=== PATIENT | female | born 1950 | race Caucasian/White ===

== ENCOUNTER → 2016-07-16 | Outpatient (CLI) | payer BC ==
[2016-07-18 13:19] LABS: LYME AB SCREEN Negative (Negative)
[2016-07-18 16:37] LABS: CYCLIC CITRULLINATED PEPTIDEAB <15.6 U (())
[2016-07-19 11:35] LABS: ANTINUCLEAR ANTIBODY 1.3 U (())
== END ==
LOC: MOB LAB 15:00
PROVIDERS: ATTEND Nurse Practitioner Family
DX: M25.562 Pain in left knee (principal); M25.561 Pain in right knee; M79.672 Pain in left foot; M79.671 Pain in right foot; M54.5 Low back pain; R21 Rash and other nonspecific skin eruption
CPT/HCPCS: 36415; 84550; 85652; 86038; 86200; 86431; 86618

== ENCOUNTER 2016-07-21 22:29 | Emergency (ER) | payer BC ==
[2016-07-21 22:47] VITALS: RESP 20; TEMP 97.8
[2016-07-21] MEDS ORDERED: KETOROLAC 30 MG/1 ML VIAL IVP ONE (23:06)
[2016-07-21] MEDS ORDERED: NORMAL SALINE 10 ML SYRINGE FLUSH IVP PRN (23:06)
[2016-07-21] MEDS ORDERED: Sodium Chloride 0.9% 1,000 ML PRIMARY IV ONE (23:06)
[2016-07-21 23:19] LABS: BASOPHILS # (AUTO) 0.02 10*3/UL; BASOPHILS % (AUTO) 0.2 % (0-1); EOSINOPHILS % (AUTO) 0.7 % (0-8); HEMATOCRIT 42.7 % (37.0-47.0); HEMOGLOBIN 14.3 g/dL (12.0-16.0); IMM GRAN % (AUTO) 0.2 % (0-5); IMM GRAN# (AUTO) 0.02 10*3/UL; LYMPHOCYTES # (AUTO) 1.45 10*3/uL; LYMPHOCYTES % (AUTO) 11.8 % (10-50); MEAN CORPUSCULAR HEMOGLOBIN 27.3 PG (27-31); MEAN CORPUSCULAR HGB CONC 33.5 g/dL (33-37); MEAN PLATELET VOLUME 10.6 FL (7.4-12.2); MONOCYTES # (AUTO) 0.92 10*3/UL (0.3-0.8); MONOCYTES % (AUTO) 7.5 % (5-15); NEUTROPHILS # (AUTO) 9.79 10*3/UL; NEUTROPHILS % (AUTO) 79.6 % (50-80); RDW COEFFICIENT OF VARIATION 14.9 % (11.5-14.5); RED BLOOD COUNT 5.24 10^6/uL (4.20-5.40); WHITE BLOOD COUNT 12.29 10^3/uL (4.8-10.8)
[2016-07-21 23:20] LABS: PLATELET MORPHOLOGY COMMENT NORMAL MORPHOLOGY (NORM)
[2016-07-21 23:25] LABS: ASPARTATE AMINO TRANSFERASE 27 IU/L (8-39); BILIRUBIN,TOTAL 0.5 mg/dL (0.3-1.2); BLOOD UREA NITROGEN 28 mg/dL (7-22); BUN/CREATININE RATIO 31.11 (6-20); CALCIUM 9.9 mg/dL (8.7-10.7); CHLORIDE 102 meq/L (98-112); CREATININE 0.9 mg/dL (0.50-1.20); EST GLOMERULAR FILTRATION > 60 (>60 ml/min/1.73m(2)); GLUCOSE 112 mg/dL (78-110); POTASSIUM 3.7 meq/L (3.8-5.2); SODIUM 140 meq/L (135-145); TOTAL PROTEIN 7.8 g/dL (6.1-8.0)
[2016-07-21] MEDS ORDERED: HYDROmorphone 2 MG/1 ML IVP ONE (23:36)
--- NOTE | 2016-07-22 01:21 | DI ---
HISTORY: Pain in left posterior thorax. Elevated D-dimer. COMPARISON STUDIES: None. TECHNIQUE: Standard CT pulmonary angiogram axial and coronal reformatted images from the level the a ortic arch through the dome of the diaphragm with maximal contrast opacification of the pulmonary art eries. 604 images FINDINGS: No evidence of acute pulmonary artery embolus identified. No thoracic aortic aneurysm or d issection present. No evidence of right heart strain. The heart and pericardium are unremarkable. Th yroid is unremarkable. A nonspecific prominent 14 mm prevascuar space mediastinal node is seen. No dawn spicious axillary or hilar lymphadenopathy identified. There is mild bilateral dependent atelectasis. The lungs are otherwise clear with no focal airspace mass, consolidation or pneumothorax. No pleural effusions present. Proximal airways are clear with no evident thickening or bronchiectasis. Multiple gallstones seen in the gallbladder lumen and neck. bilateral exophytic hypoattenuaing renal lesions are noted. The largest of these is approximately 6 cm in diameter and may have some internal septations or thin linear enhancements. This is incompletely evaluated. The remaining visualized abd ominal organs are unremarkable. The osseous structures are unremarkable without acute fracture. No suspicious lytic or sclerotic lesi on. Mild thoracic scoliotic deformity noted. IMPRESSION: 1. No evidence of acute pulmonary artery embolus. 2. Cholelithiasis. 3. Multiple large renal lesions, mostly cystic. However the 6 cm lesion on the left may have internal separations and/or thin linear post contrast enhancement. Recommend dedicated routine follow up vincent l ultrasound. 4. Nonspecific prominent 14 mm prevascuar space mediastinal node. This may be reactive. Recommend cli nical follow up.
[2016-07-22] MEDS ORDERED: ONDANSETRON 4 MG/2 ML VIAL ONE (01:30)
[2016-07-22] MEDS ORDERED: ONDANSETRON 4 MG/2 ML VIAL IVP ONE (01:35)
--- NOTE | 2016-07-22 01:44 | PDOC ---
Back Pain / Injury HPI - General Chief Complaint: Neck / Back Complaint Stated Complaint: MUSCLE SPASMS IN BACK Date Seen by Provider: 07/21/16 Time Seen by Provider: 22:45 Source: Patient, Spouse Exam Limitations: POSITIVE: No limitations Nurse's Notes Reviewed & Considered: Yes - History of Present Illness Initial Comments: The patient is a 66-year-old female. Patient states she got up this morning and rolled onto her side and experienced abrupt onset of pain over the left subscapular area. Her pain is exacerbated by deep inspiration. No history of discrete trauma. Patient states she does have a history of low back pain in the past. No cough or dyspnea. Patient took some Flexeril at 1600. She states she is allergic to morphine and hydrocodone. Body Location Affected: REPORTS: Back (Left subscapular and left upper thoracic area) Timing: REPORTS: Abrupt Duration: <24 hours Severity: Moderate Quality: REPORTS: "Pain", Sharpness Context: REPORTS: None Location at Time of Onset: REPORTS: Home Modifying Factors: improves with: Movement Associated Symptoms: REPORTS: Back pain (Left upper thoracic pain) Similar Symptoms Previously: No Recent Care Received: REPORTS: Denies Any Prior Injuries Related to Current Complaint?: No - Patient Home Medications Home Medications: Home Medications Aspirin [Aspir 81] 1 tab PO DAILY 06/04/12 Herreid-3 Fatty Acids/Fish Oil [Herreid 3 1,000 mg Softgel] 1 each PO DAILY Multivitamin [Multi-Vitamin Daily] 1 each PO DAILY 10/21/12 Cetirizine HCl [Zyrtec] 1 tab PO HS tab 01/27/14 Cyanocobalamin (Vitamin B-12) [Vitamin B12] 5,000 mcg PO DAILY tab 07/26/15 Vitamin B Complex 1 each PO DAILY tab 07/26/15 Pravastatin Sodium [Pravachol] 1 tab ORAL QPM #90 tab 07/30/15 Lactobacillus Acidophilus [Probiotic] 1 each PO QD cap 10/11/15 Magnesium 100 mg PO QD tab 10/11/15 Turmeric Root Extract [Turmeric] 500 mg PO TID cap 10/11/15 Pramipexole Di-HCl [Pramipexole Dihydrochloride] 1 tab PO QHS #90 tab 10/22/15 Orphenadrine Citrate 100 mg PO BID tab 07/01/16 Albuterol Sulfate [Proair Hfa] 1 puff INH PRN puff 11/21/15 Montelukast Sodium 1 tab PO DAILY tab 11/21/15 Potassium Chloride 1 cap PO BID #180 cap 11/22/15 Blood-Glucose Control, Normal [Onetouch Ultra Control Soln] 1 each IN BID #100 each 12/07/15 Furosemide 1 tab PO DAILY #90 tab 01/08/16 Losartan Potassium 1 tab PO DAILY #90 tab 01/08/16 Alpha Lipoic Acid 2 cap PO QD cap 05/01/16 Pregabalin [Lyrica] 1 cap PO ASDIR #540 cap 05/01/16 Triamcinolone Acetonide 1 applic TOPICAL BID PRN #120 gm 05/01/16 Cyclobenzaprine HCl 1 tab PO TID PRN #30 tab 06/10/16 Methylprednisolone [Medrol] 4 mg PO as directed #1 packet 06/10/16 Lancets [Onetouch Delica] 1 each MC 3-4XD #200 each 06/19/16 Tramadol HCl 50 mg PO Q6H PRN #20 tab 07/22/16 - Patient Allergies Allergies/Adverse Reactions: Allergies Allergy/AdvReac Type Severity Reaction Status Date / Time Sulfa (Sulfonamide Allergy Severe Anaphylaxis Verified 07/21/16 23:00 Antibiotics) morphine Allergy Intermediate Very Verified 07/21/16 23:00 difficult to wake, almost comatose. lactose AdvReac Severe DIARRHEA Verified 07/21/16 23:00 hydrocodone AdvReac CAUSED Verified 07/21/16 23:00 HALLUCINATIONS AND NIGHTMARES MRI CONTRAST - GADALINIUM AdvReac RENAL Uncoded 07/21/16 22:37 FAILURE Past Medical History - heen HEENT History: Other (please comment) Additional HEENT History: WEARS GLASSES Cardiovascular History: Hypertension, Arrhythmia, Valvular Heart Disease, Hyperlipidemia Additional Cardiovasular History: HAD STRESS TEST AND HEART CATH IN NOVEMBER 2013 FOR TOTAL JOINT CLEARANCE WITH NEGATIVE CARDIAC WORKUP Respiratory History: Asthma, Sleep Apnea, Home CPAP Use Gastrointestinal History: Denies History Genitourinary History: Renal Failure Additional Genitourinary History: R/T IV CONTRAST 11/06/15 Endocrine History: Type 2 Diabetes (oral) Additional Endocrine History: DOESNT CHECK ON REGULAR BASIS Musculoskeletal History: Arthritis, Joint Pain, Osteoarthritis Prosthesis or Implant: Yes (LEFT ARM/RIGHT TKA) Additional Musculoskeletal History: RESTLESS LEG SYNDROME Neurological History: Motion Sickness, Other (please comment) Additional Neurological History: DIABETIC NEUROPATHY Blood Disorders: Denies History Psychiatric History: Depression, Anxiety Disorders Additional Psychiatric History: STATES HX OF ABOVE BUT DENIES ANY PROBLEMS NOW History of Sexually Transmitted Diseases: No Female Reproductive History: Denies History Obstetrical History: Denies History Cancer History: Denies History In Past Year Been Physically Harmed or Verbally Threatened: No History of MDRO: No History of Other Communicable Diseases: No Tobacco Use: Never Smoker Alcohol Use: Rarely Substance Use Type: None Previous Surgical History: Yes Type / Date of Surgery: LEFT SHOULDER SCOPE/RIGHT CTR/LEFT CTR/ RIGHT TKA 01/17/14 - RIGHT KNEE SCOPE/ EGD/ COLONOSCOPY/ P HYST/ RIGHT SHOULDER SCOPE RCR/ BREAST REDUCTION/ ORIF LEFT ARM/ TONSILLECTOMY/ LEFT FOOT SX/ Anesthesia Reactions: Yes (PONV) Malignant Hyperthermia: No Significant Family History: No pertinent family hx Past Medical History Reviewed: Reviewed - No Changes ROS - Limitations ROS Limitations: No Limitations Constitution: REPORTS: Denies Symptoms Cardiovascular: REPORTS: Denies Cardiac Symptoms Respiratory: REPORTS: Other (Pleuritic pain left subscapular area) Neurological: REPORTS: Denies Neuro Symptoms Gastrointestinal: REPORTS: Denies GI Symptoms Endocrine: REPORTS: Denies Symptoms Musculoskeletal: REPORTS: Other (Left upper thoracic pain) Genitourinary: REPORTS: Denies Symptoms Eyes: REPORTS: Denies Symptoms ENT: REPORTS: Denies Symptoms Skin: REPORTS: Denies Skin Symptoms Immunologic: POSITIVE: Denies Symptoms Psychiatric: POSITIVE: Denies Psych Symptoms Back Physical Assessment - General Appearance General Appearance: REPORTS: Alert, Cooperative, No Evidence of Trauma, Anxious , Moderate Distress - HEENT HEENT: POSITIVE: Head Inspection Nml, Eyes Inspection Nml, Ears Inspection Nml, Nose Inspection Nml, Oral/Dental Inspect. Nml, Pharynx Inspect. Nml, PERRL, EOMI - Pupil Size Pupil Size: 3 mm: Bilateral (PERRLA) - Neck Neck: POSITIVE: Non Tender, Painless ROM, Trachea Midline, Nexus Criteria Negative - Respiratory / CVS Respiratory / CVS: POSITIVE: No Ecchymosis, Breath Sounds Normal, No Respiratory Distress, Heart Sounds Normal, Regular Rate/Rhythm, Tenderness ( Some tenderness on firm palpation left subscapular and left upper parathoracic area), See Diagram. NEGATIVE: Rib Tenderness, Rib Palpable FX, Crepitus, SubQ Emphysema, Splinting, Paradoxical Movements, Decreased Breath Sounds, Ecchymosis , Swelling, Abrasion(s), Wheezes, Rales, Rhonchi, Tachycardia, Bradycardia, Irregularly Irreg Rate - Abdomen Abdomen: Soft: (All Quadrants), Normal Bowel Sounds: (All Quadrants), Denies Tenderness: (All Quadrants), No Splenomegaly: (All Quadrants), No Hepatomegaly: (All Quadrants), No Guarding: (All Quadrants), No Rebound: (All Quadrants), No Palpable Pulse: (All Quadrants), No Palpabale Mass: (All Quadrants), No Distention: (All Quadrants), No Rigidity: (All Quadrants) - Back Back: REPORTS: No Vertebral Tenderness, See Diagram. DENIES: Non Tender ( Tender left upper parathoracic and left subscapular area; see diagram), Vertebral Pt. 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 Because of elevated d-dimer CTA chest was obtained which showed no pulmonary emboli. Incidentally noted were multiple gallstones and some bilateral exophytic hypoattenuating renal lesions. Lab Results Reviewed: Yes (d-dimer elevated and white blood cell count 12,000; otherwise normal) Lab Results:: Laboratory Results 07/21/16 Range/Units 23:08 WBC 12.29 H (4.8-10.8) 10^3/uL RBC 5.24 (4.20-5.40) 10^6/uL Hgb 14.3 (12.0-16.0) g/dL Hct 42.7 (37.0-47.0) % MCV 81.5 (81-99) FL MCH 27.3 (27-31) PG MCHC 33.5 (33-37) g/dL RDW Std Deviation 44.5 (39-50) fL RDW Coeff of Clementina 14.9 H (11.5-14.5) % Plt Count 216 (140-350) 10*3/uL MPV 10.6 (7.4-12.2) FL Immature Gran % (Auto) 0.2 (0-5) % Neut % (Auto) 79.6 (50-80) % Lymph % (Auto) 11.8 (10-50) % [place] % (Auto) 7.5 (5-15) % Eos % (Auto) 0.7 (0-8) % Baso % (Auto) 0.2 (0-1) % Immature Gran # (Auto) 0.02 10*3/UL Neut # (Auto) 9.79 10*3/UL Lymph # (Auto) 1.45 10*3/uL [place] # (Auto) 0.92 H (0.3-0.8) 10*3/UL Eos # (Auto) 0.09 10*3/UL Baso # (Auto) 0.02 10*3/UL WBC Morphology Comment Normal morphology (NORM) Plt Morphology Comment Normal morphology (NORM) RBC Morph Comment Normal morphology (NORM) D-Dimer 0.74 H (0.00-0.59) mg/L Sodium 140 (135-145) meq/L Potassium 3.7 L (3.8-5.2) meq/L Chloride 102 (98-112) meq/L Carbon Dioxide 24 (23-33) meq/L Anion Gap 14 (5-20) BUN 28 H (7-22) mg/dL Creatinine 0.9 (0.50-1.20) mg/dL Estimated GFR > 60 (>60 ml/min/1.73m(2)) BUN/Creatinine Ratio 31.11 H (6-20) Glucose 112 H (78-110) mg/dL Calculated Osmolality 296.0 H (267-292) mOsm/kg Calcium 9.9 (8.7-10.7) mg/dL Total Bilirubin 0.5 (0.3-1.2) mg/dL AST 27 (8-39) IU/L ALT 36 (9-52) IU/L Alkaline Phosphatase 104 (38-126) IU/L Total Protein 7.8 (6.1-8.0) g/dL Albumin 4.4 (3.5-4.8) g/dL Globulin 3.4 (2.50-4.10) g/dL Albumin/Globulin Ratio 1.20 L (1.3-2.0) mg/g - Patient's Progress Pain Medication Addressed: POSITIVE: Yes (Ketorolac and Dilaudid, with good pain relief) School/Work Release Addressed: POSITIVE: Not Applicable Re-Examine Time: 01:10 Re-Examine Comment: Patient feels much better after hydration with normal saline patient was medicated with ketorolac, 30 mg IV, and when little analgesia was achieved with this patient was given 2 mg of Dilaudid IV, with good relief of pain. Status: POSITIVE: Improved, Re-Examined - Consult Counseled: POSITIVE: Patient, Family, RE: Lab Results, RE: Radiology Results, RE : DX, RE: Need for F/U Patient Care Time - Estimated PCT Patient Care Time (In Minutes): 50 Vital Signs - Recent Vital Signs Vital Signs: Vital Signs (Last 8 hours) Temp Pulse Resp BP Pulse Ox 07/21/16 22:30 97.8 F 97 20 133/75 96 - VS Reviewed Vital Signs Reviewed: Yes Discharge Clinical Impression: Thoracic back pain Discharge Disposition: Discharged to Home Condition: Good Prescriptions / Orders: Tramadol HCl 50 mg PO Q6H PRN #20 tab PRN Reason: Pain Patient Instructions Given at Discharge: Thoracic Back Strain (ED) Additional Instructions: Your blood tests were normal as was her chest x-ray. CTA of chest did not show any blood clots or any other chest abnormalities. Incidentally noted on your CTA or gallstones and some bilateral lesions of the kidneys, which are probably benign cysts. However, to be on the safe side, please contact your primary care provider and arrange for a dedicated renal and gallbladder ultrasound. Warm moist compresses to your upper back. Tramadol one every 4 hours as necessary for pain. Return here anytime if condition worsens. Follow Up With: AMY SUAREZ [Primary Care Provider] - (Instructions as above. Return here as necessary. Follow-up with your primary care provider as indicated.)
[2016-07-22] MEDS ORDERED: traMADol 50 MG TABLET PO SCH (01:45)
[2016-07-22] MEDS ORDERED: Ondansetron ODT Tab 4 MG TAB PO SCH (02:45)
--- NOTE | 2016-07-22 07:53 | DI ---
PA /LATERAL CHEST X-RAY, 07/21/2016 11:06 PM : Clinical History: Left subscapular pain. Previous Exam: 11/14/2015. There is no acute soft tissue or bony abnormality. Heart size is normal. Lungs are clear. Mediastinal structures are normal. There are no pulmonary nodules. Reading: Normal chest x-ray. There has been no interval change.
== END 2016-07-22 03:05 ==
LOC: ER 22:29
DX: M54.89 Other dorsalgia (principal); M62.830 Muscle spasm of back; E11.40 Type 2 diabetes mellitus with diabetic neuropathy, unspecified
CPT/HCPCS: 71020; 71275; 80053; 85025; 85379; 96374; 96375; 99283 ×2; J1885; J1170; J2405; J7030

== ENCOUNTER → 2016-07-30 | Outpatient (CLI) | payer BC ==
[2016-07-30 07:28] LABS: HEMOGLOBIN A1C 5.72 % (4.2-6.0)
[2016-07-30 07:30] LABS: BLOOD UREA NITROGEN 20 mg/dL (7-22); BUN/CREATININE RATIO 22.22 (6-20); CALCIUM 9.4 mg/dL (8.7-10.7); CHOL/HDL RATIO 2.93 RATIO (0-4.0); EST GLOMERULAR FILTRATION > 60 (>60 ml/min/1.73m(2)); GAMMA GLUTAMYL TRANSPEPTIDASE 18 IU/L (8-78); HDL CHOLESTEROL 43 mg/dL (40-150); SERUM CHOLESTEROL 126 mg/dL (120-200)
== END ==
LOC: LAB 07:08
PROVIDERS: ATTEND Nurse Practitioner Family
DX: E11.9 Type 2 diabetes mellitus without complications (principal); E78.5 Hyperlipidemia, unspecified; I10 Essential (primary) hypertension
CPT/HCPCS: 36415; 80048; 82247; 82465; 82550; 82977; 83036; 83718; 84075; 84450; 84460; 84478

== ENCOUNTER → 2016-07-31 | Outpatient (CLI) | payer BC, OTHER ==
--- NOTE | 2016-07-31 13:50 | DI ---
BILATERAL RENAL ULTRASOUND, 07/31/2016 12:49 PM: Clinical History: Bilateral kidney lesions, [place]. Bilateral cysts were noted on the previous exam. Previous Exam: 11/09/2015. Scans are performed through both kidneys in multiple projections. The right kidney measures 114 mm, a nd the left kidney measures 129 mm. There is a roughly 4 cm cortical cyst between the mid zone and in the lower pole of the right kidney. In the upper pole medially, there are 2 tandem small cyst measur ing approximately 1.5 and 2.3 cm, respectively. There is an upper pole cyst in the left kidney that m easures approximately 4.0 x 4.5 x 7.8 cm. Additional small cortical cysts are noted in the lower pole and the range of 2.5 cm. No solid lesion is seen in either kidney. There is no hydronephrosis or hyd roureter. Perfusion to both kidneys is symmetric and normal. The bladder is normal. Bilateral uretera l jets are visualized. There is an estimated prevoid bladder volume of 350-355 mL. There is no post v oid residual volume. Readin. There are bilateral simple cysts, measuring up to 4.0 cm on the right side and greater than 4 cm in diameter on the left side. No solid lesion is identified. The kidneys are otherwise normal and the re has been no significant interval change. 2. The bladder is normal and bilateral ureteral jets are visualized. The bladder volume is in the ra nge of 350-355 mL and there is no post void residual volume. 2.3 cm 2.3 cm 2.3 cm
--- NOTE | 2016-07-31 16:47 | DI ---
RIGHT KNEE, 07/31/2016 4:24 PM: Clinical History: Right knee pain. Previous Exam: 09/14/2014. 3 views are submitted. The AP projection is a weightbearing view. The patient is status post total ri ght knee replacement. The prosthetic device articulates normally. There is no evidence of loosening o f the prosthesis. There is a small joint effusion. Readin. Status post total right knee replacement without evidence of loosening of the prosthesis. The pro sthetic device articulates normally. 2. There is a small joint effusion.
== END ==
LOC: US 12:43
PROVIDERS: ATTEND Nurse Practitioner Family
DX: N28.9 Disorder of kidney and ureter, unspecified (principal); M25.561 Pain in right knee; M25.461 Effusion, right knee; Z96.651 Presence of right artificial knee joint
CPT/HCPCS: 73562; 76770

== ENCOUNTER → 2016-10-07 | Outpatient (CLI) | payer BC ==
--- NOTE | 2016-10-07 23:00 | DI ---
RIGHT SHOULDER, 10/07/2016 11:31 AM: Clinical History: Right shoulder pain. Previous Exam: None at this facility. 3 views are submitted. There is no acute soft tissue, osseous, or joint abnormality. There are metall ic anchors in the humeral head probably secondary to a rotator cuff tear. The visualized portions of the right lung and apex are normal. Reading: Status post previous right shoulder surgery. The exam is otherwise normal.
--- NOTE | 2016-10-07 23:03 | DI ---
RIGHT LONG FINGER EXAM, 10/07/2016 11:33 AM: Clinical History: Pain in the right long finger. Previous Exam: None at this facility. 3 views are submitted. There is no acute soft tissue, osseous, or joint abnormality. Reading: Normal right long finger exam.
--- NOTE | 2016-10-08 15:00 | DI ---
CERVICAL SPINE SERIES, 10/07/2016 12:55 PM: Clinical History: Cervical pain. Previous Exam: None at this facility. Upright AP and lateral and upright lateral flexion and extension views are submitted. The vertebral b odies are normal in height and size. There is severe disc space narrowing at C4-5 and C5-6 with moder ate narrowing at C6-7 and C7-T1. The C2-3 and C3-4 disc spaces are normal in height. Posterior alignm ent is normal but on the extension view, there is no cervical lordosis in the patient is extending on ly the occiput and C1 posteriorly. Posterior alignment and lateral masses are normal. Degenerative ar thritic changes are present bilaterally in the uncovertebral joints at C3-4 through C5-6. C1 articula herber normally with C2 and the occiput. Prevertebral soft tissue planes are normal. Readin. Chronic disc space narrowing at C4-5 through C7-T1 with degenerative arthritic changes of the unc overtebral joints bilaterally between C3-4 through C5-6. 2. There is no instability with flexion and extension maneuvers although on the extension view, ther e is no cervical lordosis in the patient is bending mainly at C1 and the occiput.
== END ==
LOC: ORTHO 12:14
PROVIDERS: ATTEND Physician Assistant
DX: M25.511 Pain in right shoulder (principal); M79.644 Pain in right finger(s); M54.2 Cervicalgia; M47.22 Other spondylosis with radiculopathy, cervical region; M48.02 Spinal stenosis, cervical region; Z98.890 Other specified postprocedural states
CPT/HCPCS: 72050; 73030; 73140

== ENCOUNTER → 2016-10-14 | Outpatient (CLI) | payer BC ==
--- NOTE | 2016-10-14 16:32 | DI ---
HISTORY: Neck pain and right arm radiculopathy. PREVIOUS EXAM: None at this facility. TECHNIQUE: Multiplanar MR images are obtained through the cervical spine without contrast. FINDINGS: There is reversal of the normal lordotic curvature of the cervical spine from C3-C5. The spinal cord descends normally with normal course, caliber and signal characteristics. The posteri or fossa is unremarkable. The prevertebral soft tissues are unremarkable. There is some flow artifact within the CSF which limi ts evaluation of the signal within the spinal cord. Signal within the clivus is normal. There is no evidence of Chiari malformation. Individual intervertebral disc spaces: C2/C3: No significant stenosis. C3/4: There is a mild facet hypertrophy and mild degenerative endplate changes causing mild left neur oforaminal narrowing. C4/5: There is disc desiccation and a broad-based disc bulge with uncovertebral joint osteophyte form ation and facet hypertrophy contributing to mild to moderate left neural foraminal narrowing and no s ignificant right neural foraminal narrowing. C5/6: There is loss of intervertebral disc height with a small broad-based disc bulge and uncovertebr al joint osteophytes contributing to mild central canal stenosis with moderate right and mild left ne ural foraminal narrowing. C6/7: There is disc desiccation and a broad-based disc bulge with some uncovertebral joint osteophyte formation and some facet hypertrophy without significant stenosis. C7/T1: No significant stenosis. IMPRESSION: 1. C3/4: There is a mild facet hypertrophy and mild degenerative endplate changes causing mild left neuroforaminal narrowing. 2. C4/5: There is disc desiccation and a broad-based disc bulge with uncovertebral joint osteophyte formation and facet hypertrophy contributing to mild to moderate left neural foraminal narrowing and no significant right neural foraminal narrowing. 3. C5/6: There is loss of intervertebral disc height with a small broad-based disc bulge and uncover tebral joint osteophytes contributing to mild central canal stenosis with moderate right and mild lef t neural foraminal narrowing. 4. C6/7: There is disc desiccation and a broad-based disc bulge with some uncovertebral joint osteop hyte formation and some facet hypertrophy without significant stenosis. 5. C7/T1: No significant stenosis.
== END ==
LOC: MRI 13:48
PROVIDERS: ATTEND Physician Assistant
DX: M47.22 Other spondylosis with radiculopathy, cervical region (principal); M50.121 Cervical disc disorder at C4-C5 level with radiculopathy
CPT/HCPCS: 72141

== ENCOUNTER → 2016-10-15 | Outpatient (CLI) | payer BC ==
--- NOTE | 2016-10-15 10:42 | DI ---
HISTORY: Injury to right shoulder. Decreased range of motion. History of surgery. TECHNIQUE: MR images of the right shoulder were obtained and submitted for interpretation. FINDINGS: Patient has a history of rotator cuff repair. Repaired supraspinatus and infraspinatus ten dons appear grossly intact without retraction or muscle atrophy although low grade partial tears hard to exclude. There is medial subluxation of the biceps tendon out of the bicipital groove without evidence for ful l thickness tearing. There is irregularity of anterior and posterior superior glenoid labrum possibly representing tearing . There is minimal joint effusion and bursitis. IMPRESSION: 1. Post-surgical changes, as above. 2. Medial subluxation of the biceps tendon out of the bicipital groove. 3. Possible tearing of the glenoid labrum. 4. Minimal joint effusion and bursitis.
== END ==
LOC: MRI 07:49
PROVIDERS: ATTEND Physician Assistant
DX: M25.511 Pain in right shoulder (principal); M75.51 Bursitis of right shoulder; M25.411 Effusion, right shoulder
CPT/HCPCS: 73221

== ENCOUNTER → 2016-11-03 | Outpatient (CLI) | payer BC ==
[2016-11-03 07:57] LABS: HEMOGLOBIN A1C 5.69 % (4.2-6.0)
[2016-11-03 08:18] LABS: CREATININE, URINE 177.9 MG/DL (15-500)
[2016-11-03 08:22] LABS: BLOOD UREA NITROGEN 18 mg/dL (7-22); CALCIUM 9.2 mg/dL (8.7-10.7); CHOL/HDL RATIO 2.79 RATIO (0-4.0); EST GLOMERULAR FILTRATION > 60 (>60 ml/min/1.73m(2)); GAMMA GLUTAMYL TRANSPEPTIDASE 15 IU/L (8-78); HDL CHOLESTEROL 53 mg/dL (40-150); SERUM CHOLESTEROL 148 mg/dL (120-200)
== END ==
LOC: LAB 07:22
PROVIDERS: ATTEND Nurse Practitioner Family
DX: E11.9 Type 2 diabetes mellitus without complications (principal); E78.5 Hyperlipidemia, unspecified; I10 Essential (primary) hypertension
CPT/HCPCS: 36415; 80048; 82043; 82247; 82465; 82550; 82977; 83036; 83718; 84075; 84450; 84460; 84478

== ENCOUNTER → 2016-11-03 | Outpatient (CLI) | payer BC ==
--- NOTE | 2016-11-03 16:33 | EKG ---
[address] [address] Measurements Intervals [place] Rate: 62 P: 30 SD: 171 QRS: 81 QRSD: 90 T: -13 QT: 412 QTc: 418 Interpretive Statements SINUS RHYTHM NONSPECIFIC T-WAVE ABNORMALITY Compared to ECG 11/09/2015 09:51:22 No significant changes Electronically Signed On 11-03-16 19:59:00 MDT by Issac Holcomb [email or web address]
[2016-11-03 17:12] LABS: BASOPHILS # (AUTO) 0.01 10*3/UL; BASOPHILS % (AUTO) 0.1 % (0-1); EOSINOPHILS # (AUTO) 0.21 10*3/UL; HEMATOCRIT 41.6 % (37.0-47.0); HEMOGLOBIN 13.5 g/dL (12.0-16.0); LYMPHOCYTES # (AUTO) 3.16 10*3/uL; MEAN CORPUSCULAR HEMOGLOBIN 26.8 PG (27-31); MEAN CORPUSCULAR HGB CONC 32.5 g/dL (33-37); MEAN CORPUSCULAR VOLUME 82.5 FL (81-99); MEAN PLATELET VOLUME 10.6 FL (7.4-12.2); MONOCYTES # (AUTO) 0.53 10*3/UL (0.3-0.8); MONOCYTES % (AUTO) 7.5 % (5-15); NEUTROPHILS # (AUTO) 3.19 10*3/UL; NEUTROPHILS % (AUTO) 44.9 % (50-80); RED BLOOD COUNT 5.04 10^6/uL (4.20-5.40)
[2016-11-03 17:14] LABS: PLATELET MORPHOLOGY COMMENT NORMAL MORPHOLOGY (NORM); RBC MORPHOLOGY COMMENT NORMAL MORPHOLOGY (NORM); WBC MORPHOLOGY COMMENT NORMAL MORPHOLOGY (NORM)
--- NOTE | 2016-11-03 18:33 | DI ---
PA /LATERAL CHEST X-RAY, 11/03/2016 3:59 PM : Clinical History: Preprocedure evaluation Previous Exam: July 21, 2016 There is no acute soft tissue or bony abnormality. Heart size is normal. Lungs are clear. Mediastinal structures are normal. There are no pulmonary nodules. There is mild increased AP dimension and flattening of the hemidiaphragms consistent with COPD. Stable postsurgical changes are seen with suture anchors in the right humeral head. IMPRESSION: Normal chest x-ray.
== END ==
LOC: MOB EKG 16:13
PROVIDERS: ATTEND Nurse Practitioner Family
DX: Z01.812 Encounter for preprocedural laboratory examination (principal); Z01.810 Encounter for preprocedural cardiovascular examination; Z01.818 Encounter for other preprocedural examination; M75.111 Incomplete rotator cuff tear or rupture of right shoulder, not specified as traumatic; M24.111 Other articular cartilage disorders, right shoulder; J44.9 Chronic obstructive pulmonary disease, unspecified
CPT/HCPCS: 36415; 71020; 83880; 85025; 93005; 93010

== ENCOUNTER 2016-11-11 15:31 | Emergency (ER) | payer BC, OTHER ==
[2016-11-11] MEDS ORDERED: NORMAL SALINE 10 ML SYRINGE FLUSH IVP PRN (16:09)
[2016-11-11] MEDS ORDERED: NITROGLYCERIN 0.4 MG SL TAB (BOTTLE OF 3) SL PRN (16:09)
[2016-11-11] MEDS ORDERED: Sodium Chloride 0.9% 1,000 ML PRIMARY IV ONE (16:09)
[2016-11-11] MEDS ORDERED: ASPIRIN 81 MG (BABY) CHEWABLE TABLET PO ONE (16:09)
[2016-11-11] MEDS ORDERED: Pantoprazole Inj 40 MG in Normal Saline Flush 10 ML IVP ONE (16:09)
--- NOTE | 2016-11-11 16:12 | EKG ---
[address] [address] Measurements Intervals [place] Rate: 64 P: 34 HI: 163 QRS: 74 QRSD: 95 T: 6 QT: 404 QTc: 414 Interpretive Statements SINUS RHYTHM INTERPRETATION BASED ON A DEFAULT AGE OF 40 YEARS Compared to ECG 11/03/2016 16:31:44 T-wave abnormality no longer as marked Electronically Signed On 11-12-16 08:33:44 MDT by Manuel Gomez MD [email or web address]
[2016-11-11 16:13] VITALS: RESP 20; TEMP 96.9
[2016-11-11 16:18] LABS: BASOPHILS # (AUTO) 0.02 10*3/UL; BASOPHILS % (AUTO) 0.3 % (0-1); EOSINOPHILS # (AUTO) 0.24 10*3/UL; EOSINOPHILS % (AUTO) 3.2 % (0-8); HEMATOCRIT 46.4 % (37.0-47.0); HEMOGLOBIN 15.1 g/dL (12.0-16.0); LYMPHOCYTES # (AUTO) 2.19 10*3/uL; MEAN CORPUSCULAR HEMOGLOBIN 26.7 PG (27-31); MEAN CORPUSCULAR HGB CONC 32.5 g/dL (33-37); MEAN PLATELET VOLUME 10.7 FL (7.4-12.2); MONOCYTES # (AUTO) 0.69 10*3/UL (0.3-0.8); MONOCYTES % (AUTO) 9.2 % (5-15); NEUTROPHILS # (AUTO) 4.35 10*3/UL; RED BLOOD COUNT 5.66 10^6/uL (4.20-5.40)
[2016-11-11 16:24] LABS: LIPASE 71 IU/L (23-300); PLATELET MORPHOLOGY COMMENT NORMAL MORPHOLOGY (NORM); RBC MORPHOLOGY COMMENT NORMAL MORPHOLOGY (NORM); WBC MORPHOLOGY COMMENT NORMAL MORPHOLOGY (NORM)
[2016-11-11 16:26] LABS: BLOOD UREA NITROGEN 22 mg/dL (7-22); BUN/CREATININE RATIO 24.44 (6-20); CALCIUM 9.5 mg/dL (8.7-10.7); EST GLOMERULAR FILTRATION > 60 (>60 ml/min/1.73m(2)); SERUM ALBUMIN 4.7 g/dL (3.5-4.8)
[2016-11-11 16:38] LABS: CREATINE KINASE MB 1.76 NG/ML (0.00-5.00); TROPONIN I < 0.012 ng/mL (< 0.040)
[2016-11-11] MEDS ORDERED: oxyCODONE-ACETAMINOPHEN 5-325 TAB PO ONE (17:13)
--- NOTE | 2016-11-11 17:30 | DI ---
AP CHEST X-RAY, 11/11/2016 4:10 PM : Clinical History: Chest pain Previous Exam: November 03, 2016 There is no acute soft tissue or bony abnormality. Heart size is normal. Lungs are clear. Mediastinal structures are normal. There are no pulmonary nodules. The overlying EKG leads are seen. Postsurgical changes are seen in the right proximal humerus. Reading: No acute disease.
--- NOTE | 2016-11-11 18:23 | DI ---
VENOUS DOPPLER ULTRASOUND OF THE LEFT LOWER EXTREMITY, 11/11/2016 5:15 PM: Clinical History: Elevated d-dimer Previous Exam: None. Technique: 2D real-time imaging is supplemented with color Doppler ultrasound. Compression and augmen tation maneuvers were performed. The long saphenous vein is normal. Reading: No evidence of deep venous thrombosis.
--- NOTE | 2016-11-11 18:59 | DI ---
CT CTA CHEST NONCORONARY W/WO,11/11/2016 5:14 PM: Clinical History: Chest pain and elevated d-dimer Previous Exam: July 22, 2016 Findings: Multiple helically acquired CT images are obtained through the chest following a CT chest angiogram p rotocol. The pulmonary arteries are normal without filling defect or truncation. There is subsegmental atelect asis in the lung bases. Liver is unremarkable. There is a large cystic mass within the left kidney which is not well evaluated on this exam. This is stable compared to the prior exam. There are multiple stones seen within the gallbladder. The aorta is unremarkable. Impression: No evidence of pulmonary embolism. Stable renal cysts. Stable cholelithiasis.
--- NOTE | 2016-11-11 21:07 | PDOC ---
Chest Pain HPI - General Chief Complaint: Chest Pain Stated Complaint: CP Date Seen by Provider: 11/11/16 Time Seen by Provider: 15:45 Source: Patient Exam Limitations: POSITIVE: No limitations Treatment Prior to Arrival: REPORTS: None Nurse's Notes Reviewed & Considered: Yes - History of Present Illness Initial Comments: The patient is a 66 year old female. Patient states that 4 days ago she had surgery to her right shoulder in [place]; she states that she had a labrum repair. Approximately one hour [employer] she developed a subxiphoid burning sensation which she describes as "a sharp burning heartburn". Patient has no known cardiac problems. She states she had a normal coronary artery catheterization 2 years ago. She had some discomfort to her left leg earlier today as well. Body Location Affected: REPORTS: Chest Timing: REPORTS: Abrupt Duration: 1 hour Severity: Moderate Persistent/Worse since (date): 11/11/16 Persistent/Worse since (time): 14:30 Context: REPORTS: Rest Quality: REPORTS: Burning Radiation: REPORTS: None Associated Symptoms: DENIES: Nausea, Vomiting, Diaphoresis, Shortness of Breath , Hurts to Breathe, Palpitations, Productive Cough (blood), Productive Cough ( sputum), Weakness, Dizziness Modifying Factors: improves with: None Reported Similar Symptoms Previously: No Recently seen/treated/hospitalized: Yes (as above) Any Prior Injuries Related to Current Complaint?: No - Patient Home Medications Home Medications: Home Medications Aspirin [Aspir 81] 1 tab PO DAILY 06/04/12 Edson-3 Fatty Acids/Fish Oil [Edson 3 1,000 mg Softgel] 1 each PO DAILY Multivitamin [Multi-Vitamin Daily] 1 each PO DAILY 10/21/12 Cetirizine HCl [Zyrtec] 1 tab PO HS tab 01/27/14 Cyanocobalamin (Vitamin B-12) [Vitamin B12] 5,000 mcg PO DAILY tab 07/26/15 Vitamin B Complex 1 each PO DAILY tab 07/26/15 Lactobacillus Acidophilus [Probiotic] 1 each PO QD cap 10/11/15 Magnesium 100 mg PO QD tab 10/11/15 Turmeric Root Extract [Turmeric] 500 mg PO TID cap 10/11/15 Pramipexole Di-HCl [Pramipexole Dihydrochloride] 1 tab PO QHS #90 tab 10/22/15 Blood-Glucose Control, Normal [Onetouch Ultra Control Soln] 1 each IN BID #100 each 12/07/15 Alpha Lipoic Acid 2 cap PO QD cap 05/01/16 Lancets [Onetouch Delica] 1 each MC 3-4XD #200 each 09/22/16 Oxycodone HCl/Acetaminophen [Percocet 5-325 Mg Tablet] 1 each PO Q6H PRN #60 tab 10/22/16 Furosemide 1 tab PO DAILY #90 tab 11/04/16 Losartan Potassium 1 tab PO DAILY #90 tab 11/04/16 Potassium Chloride 1 cap PO BID #180 cap 11/04/16 Pravastatin Sodium [Pravachol] 1 tab ORAL QPM #90 tab 11/04/16 Pregabalin [Lyrica] 1 cap PO ASDIR #270 cap 11/04/16 - Patient Allergies Allergies/Adverse Reactions: Allergies Allergy/AdvReac Type Severity Reaction Status Date / Time Sulfa (Sulfonamide Allergy Severe Anaphylaxis Verified 11/11/16 15:44 Antibiotics) morphine Allergy Intermediate Very Verified 11/11/16 15:44 difficult to wake, almost comatose. lactose AdvReac Severe DIARRHEA Verified 11/11/16 15:44 hydrocodone AdvReac CAUSED Verified 11/11/16 15:44 HALLUCINATIONS AND NIGHTMARES MRI CONTRAST - GADALINIUM AdvReac RENAL Uncoded 11/11/16 15:42 FAILURE Past Medical History - heen HEENT History: Other (please comment) Additional HEENT History: WEARS GLASSES Cardiovascular History: Hypertension, Arrhythmia, Valvular Heart Disease, Hyperlipidemia Additional Cardiovasular History: HAD STRESS TEST AND HEART CATH IN NOVEMBER 2013 FOR TOTAL JOINT CLEARANCE WITH NEGATIVE CARDIAC WORKUP Respiratory History: Asthma, Sleep Apnea, Home CPAP Use Gastrointestinal History: Denies History Genitourinary History: Renal Failure Additional Genitourinary History: R/T IV CONTRAST 11/06/15 Endocrine History: Type 2 Diabetes (oral) Additional Endocrine History: DOESNT CHECK ON REGULAR BASIS Musculoskeletal History: Arthritis, Joint Pain, Osteoarthritis Prosthesis or Implant: Yes (LEFT ARM/RIGHT TKA) Additional Musculoskeletal History: RESTLESS LEG SYNDROME Neurological History: Motion Sickness, Other (please comment) Additional Neurological History: DIABETIC NEUROPATHY Blood Disorders: Denies History Psychiatric History: Depression, Anxiety Disorders Additional Psychiatric History: STATES HX OF ABOVE BUT DENIES ANY PROBLEMS NOW History of Sexually Transmitted Diseases: No Cancer History: Denies History In Past Year Been Physically Harmed or Verbally Threatened: No History of MDRO: No History of Other Communicable Diseases: No Tobacco Use: Never Smoker Alcohol Use: Rarely Substance Use Type: None Previous Surgical History: Yes Type / Date of Surgery: LEFT SHOULDER SCOPE/RIGHT CTR/LEFT CTR/ RIGHT TKA 01/17/14 - RIGHT KNEE SCOPE/ EGD/ COLONOSCOPY/ P HYST/ RIGHT SHOULDER SCOPE RCR/ BREAST REDUCTION/ ORIF LEFT ARM/ TONSILLECTOMY/ LEFT FOOT SX/ Anesthesia Reactions: Yes (PONV) Malignant Hyperthermia: No Significant Family History: No pertinent family hx Past Medical History Reviewed: Reviewed - No Changes ROS - Limitations ROS Limitations: No Limitations Constitution: REPORTS: Denies Symptoms Cardiovascular: REPORTS: Chest Pain Respiratory: REPORTS: Denies Resp Symptoms Neurological: REPORTS: Denies Neuro Symptoms Gastrointestinal: REPORTS: Other ("Heartburn") Endocrine: REPORTS: Denies Symptoms Musculoskeletal: REPORTS: Denies MS Symptoms Genitourinary: REPORTS: Denies Symptoms Eyes: REPORTS: Denies Symptoms ENT: REPORTS: Denies Symptoms Skin: REPORTS: Denies Skin Symptoms Lympathic: REPORTS: Denies Lympathic Symptoms Immunologic: POSITIVE: Denies Symptoms Psychiatric: POSITIVE: Denies Psych Symptoms Chest Pain PE - General Appearance General Appearance: REPORTS: Alert, Cooperative, No Acute Distress, No Evidence of Trauma - HEENT HEENT: POSITIVE: Head Inspection Nml, Eyes Inspection Nml, Ears Inspection Nml, Nose Inspection Nml, Oral/Dental Inspect. Nml, Pharynx Inspect. Nml, PERRL, EOMI - Neck Neck: REPORTS: Normal Inspection, No Carotid Bruit - Respiratory Respiratory: REPORTS: No Respiratory Distress, Breath Sounds Normal, Chest Non- Tender - Cardiovascular Cardiovascular: REPORTS: Regular Rate and Rhythm, Heart Sounds Normal, Equal Pulses, Strong Pulses, No Murmur, No Gallop, No Friction Rub, No JVD Peripheral Pulses: Radial (R): 2+, Radial (L): 2+ - Abdomen Abdomen: Soft: (All Quadrants), Normal Bowel Sounds: (All Quadrants), Denies Tenderness: (All Quadrants), No Splenomegaly: (All Quadrants), No Hepatomegaly: (All Quadrants), No Guarding: (All Quadrants), No Rebound: (All Quadrants), No Palpable Pulse: (All Quadrants), No Palpabale Mass: (All Quadrants), No Distention: (All Quadrants), No Rigidity: (All Quadrants) - Skin Skin: REPORTS: Intact, Normal For Race, Warm, Dry, No Rash - Extremities Extremity: Non-Tender: (All Extremities), Normal ROM: (All Extremities), Normal Inspection: (All Extremities) - Neurological / Psychological Neurological: 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 CTA chest normal. Venous duplex ultrasound left leg normal. Lab Results Reviewed: Yes Lab Results:: Laboratory Results 11/11/16 Range/Units 16:15 WBC 7.50 (4.8-10.8) 10^3/uL RBC 5.66 H (4.20-5.40) 10^6/uL Hgb 15.1 (12.0-16.0) g/dL Hct 46.4 (37.0-47.0) % MCV 82.0 (81-99) FL MCH 26.7 L (27-31) PG MCHC 32.5 L (33-37) g/dL RDW Std Deviation 46.3 (39-50) fL RDW Coeff of Clementina 15.4 H (11.5-14.5) % Plt Count 270 (140-350) 10*3/uL MPV 10.7 (7.4-12.2) FL Immature Gran % (Auto) 0.1 (0-5) % Neut % (Auto) 58.0 (50-80) % Lymph % (Auto) 29.2 (10-50) % [place] % (Auto) 9.2 (5-15) % Eos % (Auto) 3.2 (0-8) % Baso % (Auto) 0.3 (0-1) % Immature Gran # (Auto) 0.01 10*3/UL Neut # (Auto) 4.35 10*3/UL Lymph # (Auto) 2.19 10*3/uL [place] # (Auto) 0.69 (0.3-0.8) 10*3/UL Eos # (Auto) 0.24 10*3/UL Baso # (Auto) 0.02 10*3/UL WBC Morphology Comment Normal morphology (NORM) Plt Morphology Comment Normal morphology (NORM) RBC Morph Comment Normal morphology (NORM) D-Dimer 1.39 H (0.00-0.59) mg/L Sodium 139 (135-145) meq/L Potassium 3.4 L (3.8-5.2) meq/L Chloride 99 (98-112) meq/L Carbon Dioxide 28 (23-33) meq/L Anion Gap 12 (5-20) BUN 22 (7-22) mg/dL Creatinine 0.9 (0.50-1.20) mg/dL Estimated GFR > 60 (>60 ml/min/1.73m(2)) BUN/Creatinine Ratio 24.44 H (6-20) Glucose 90 (78-110) mg/dL Calculated Osmolality 290.0 (267-292) mOsm/kg Calcium 9.5 (8.7-10.7) mg/dL Total Bilirubin 0.5 (0.3-1.2) mg/dL AST 76 H (8-39) IU/L ALT 39 (9-52) IU/L Alkaline Phosphatase 113 (38-126) IU/L CK-MB (CK-2) 1.76 (0.00-5.00) NG/ML Troponin I < 0.012 (< 0.040) ng/mL Total Protein 8.3 H (6.1-8.0) g/dL Albumin 4.7 (3.5-4.8) g/dL Globulin 3.6 (2.50-4.10) g/dL Albumin/Globulin Ratio 1.30 (1.3-2.0) mg/g Amylase 77 (30-110) U/L Lipase 71 (23-300) IU/L EKG Interpreted/Reviewed By Me:: Yes (normal) EKG Interpretation:: POSITIVE: Normal Sinus Rhythm, Normal Rate, Normal Intervals, Normal Pollard, Normal QRS, Normal ST/T - Patient's Progress Pain Medication Addressed: POSITIVE: Not Applicable School/Work Release Addressed: POSITIVE: Not Applicable Re-Examine Time: 19:15 Re-Examine Comment: Patient given Prilosec IV. Patient asymptomatic on discharge. Advised patient and that most likely patient's symptoms were due to gastroesophageal reflux. Recommended a trial of Zantac or Prilosec. No evidence of pulmonary emboli or heart attacks. Patient encouraged to return anytime if condition worsens in any way. Status: POSITIVE: Improved, Re-Examined Quality Measure Initiative: CP/AMI: POSITIVE: EKG, ASA - Consult Counseled: POSITIVE: Patient, Family, RE: Lab Results, RE: Radiology Results, RE : DX, RE: Need for F/U Patient Care Time - Estimated PCT Patient Care Time (In Minutes): 60 Vital Signs - Recent Vital Signs Vital Signs: Vital Signs (Last 8 hours) Temp Pulse Pulse Resp BP Pulse Ox 11/11/16 17:15 70 11/11/16 15:35 70 11/11/16 15:32 96.9 F 70 20 131/80 94 - VS Reviewed Vital Signs Reviewed: Yes Discharge Clinical Impression: Chest pain, Heartburn Discharge Disposition: Discharged to Home Condition: Good Patient Instructions Given at Discharge: Chest Pain (ED), Gastroesophageal Reflux Disease (ED) Additional Instructions: I believe that most likely your symptoms are due to gastroesophageal reflux. He cardiac enzymes and CT scan of the chest is normal. I do not think your chest discomfort is coming from your heart, but no oncoming completely guarantee this. Therefore, please return if your condition worsens in any way. Try Zantac or Prilosec [id number]. You do not have a blood clot to your legs or lungs. Follow-up with your primary care provider. Return here anytime if condition worsens in any way whatsoever. Follow Up With: AMY SUAREZ [Primary Care Provider] - (Instructions as above. Follow-up with your primary care provider. Return as necessary.)
== END 2016-11-11 19:33 | disposition home or self-care (01) ==
LOC: ER 15:31
DX: R12 Heartburn (principal); E11.9 Type 2 diabetes mellitus without complications; R07.9 Chest pain, unspecified; I10 Essential (primary) hypertension; Z98.890 Other specified postprocedural states
CPT/HCPCS: 71010; 71275; 80053; 82150; 82553; 83690; 84484; 85025; 85379; 93005; 93010; 93971; 96374; 99284; J3490; J7030

== ENCOUNTER → 2016-12-16 | Outpatient (CLI) | payer BC ==
[2016-12-16 10:54] LABS: BASOPHILS # (AUTO) 0.02 10*3/UL; BASOPHILS % (AUTO) 0.3 % (0-1); EOSINOPHILS # (AUTO) 0.28 10*3/UL; EOSINOPHILS % (AUTO) 4.4 % (0-8); LYMPHOCYTES # (AUTO) 1.95 10*3/uL; MEAN CORPUSCULAR HEMOGLOBIN 26.9 PG (27-31); MEAN CORPUSCULAR HGB CONC 32.6 g/dL (33-37); MEAN CORPUSCULAR VOLUME 82.7 FL (81-99); MEAN PLATELET VOLUME 10.6 FL (7.4-12.2); MONOCYTES # (AUTO) 0.52 10*3/UL (0.3-0.8); MONOCYTES % (AUTO) 8.1 % (5-15); NEUTROPHILS # (AUTO) 3.61 10*3/UL; NEUTROPHILS % (AUTO) 56.5 % (50-80); PLATELET MORPHOLOGY COMMENT NORMAL MORPHOLOGY (NORM); RBC MORPHOLOGY COMMENT NORMAL MORPHOLOGY (NORM); WBC MORPHOLOGY COMMENT NORMAL MORPHOLOGY (NORM)
[2016-12-16 11:40] LABS: ERYTHROCYTE SEDIMENTATION RATE 13 MM/HR (0-20)
== END ==
LOC: LAB 10:23
PROVIDERS: ATTEND Orthopaedic Surgery
DX: Z47.1 Aftercare following joint replacement surgery (principal); Z96.651 Presence of right artificial knee joint
CPT/HCPCS: 36415; 85025; 85652; 86140